=== PATIENT | female | born 1980 | race African-American/Black ===

== ENCOUNTER 2017-02-22 20:41 | Emergency (ER) | payer OTHER, MEDICAID ==
[~2017-02-22] VITALS: Ht 162.6 cm; Wt 124.7 kg
[~2017-02-22 20:41] MED LIST: AMLODIPINE BESY10 MG PO; AUGMENTIN 875875 MG PO; BENTYL 10 MG CA10 M1 PO; CELEXA 20 MG TA20 MG PO; CIPRO500 MG PO; CIPROFLOXACIN500 M1 PO; COLACE100 MG PO; COMPAZINE10 MG PO; FLAGYL500 M1 PO; FLAGYL500 MG PO; FLEXERIL PO; HYDROCHLOROTHIA25 M2 PO; HYDROCHLOROTHIA50 MG PO; HYDROCODONE-AP1 EAC6 PO; LEVAQUIN 500 M500 M2 PO; LISINOPRIL40 MG PO; MIRALAX17 GM PO; NORVASC10 MG PO; OXYCODONE HCL 55 MG PO; OXYCONTIN10 M1 PO; OXYCONTIN20 M1 PO; PERCOCET PO; PRINIVIL40 MG PO; PROTONIX40 M1 PO; ROXICODONE5 M2 PO; SENOKOT-S1 TA1 PO; TRANSDERM-SCO1 PATC1 TRANSDERM; UNICOMPLEX M TA1 TA1; VANCO1GM PO; ZOFRAN ODT4 MG DISSOLVE
[2017-02-22 21:31] LABS: AMP/METHAMP Negative (Negative); BARBITURATES Negative (Negative); BENZODIAZEPINES Negative (Negative); COCAINE Negative (Negative); METHADONE Negative (Negative); OPIATES Negative (Negative); PCP Negative (Negative); THC POSITIVE (Negative)
[2017-02-22] MEDS ORDERED: FLAGYL500 MG PO (22:12)
[2017-02-22] MEDS ORDERED: CIPROFLOXACIN500 M1 PO (22:12)
[2017-02-22] MEDS ORDERED: OXYCODONE HCL15 MG PO (22:15)
[2017-02-22 22:52] VITALS: BP 178/82
== END 2017-02-22 22:54 | disposition home or self-care (01) ==
LOC: M.ERS 20:41
PROVIDERS: Emergency Medicine
DX: N76.0 Acute vaginitis (principal); R19.7 Diarrhea, unspecified; I10 Essential (primary) hypertension; Z90.710 Acquired absence of both cervix and uterus; Z98.890 Other specified postprocedural states; G89.29 Other chronic pain; F10.99 Alcohol use, unspecified with unspecified alcohol-induced disorder; Z88.2 Allergy status to sulfonamides; Z88.8 Allergy status to other drugs, medicaments and biological substances

== ENCOUNTER 2017-06-30 16:40 | Inpatient (IN) | payer OTHER, MEDICAID ==
[~2017-06-30] VITALS: Ht 170.2 cm; Wt 127.0 kg
[~2017-06-30 16:40] MED LIST changes: +OXYCODONE HCL15 MG PO
[2017-06-30 16:49] VITALS: BP 171/92
[2017-06-30 16:55] LABS: URINE BILIRUBIN NEGATIVE (Negative); URINE BLOOD 1+ (Negative); URINE CLARITY CLEAR; URINE COLOR YELLOW; URINE GLUCOSE-RANDOM NEGATIVE (Negative); URINE KETONES NEGATIVE (Negative); URINE LEUKOCYTES-REFLEX TRACE (Negative); URINE NITRITE-REFLEX NEGATIVE (Negative); URINE PROTEIN NEGATIVE (Negative); URINE SPECIFIC GRAVITY 1.025 (1.005-1.030)
[2017-06-30 17:04] LABS: BACTERIA-REFLEX >30 Many /HPF (None Seen); CASTS None Seen /LPF (None Seen); CRYSTALS None Seen /LPF (None Seen); MUCUS 4-6 Moderate strn/LPF (None Seen); SQUAMOUS 4-10 Moderate /LPF (0-3); TRANSITIONAL EPITHEL CELL 0-3 Few /LPF (None Seen); URINE WBC-REFLEX 0-5 Rare /HPF (0-5)
[2017-06-30 17:13] LABS: ABSOLUTE BASOPHILS 0.1 thou/uL (0.0-0.2); ABSOLUTE EOSINOPHILS 0.1 thou/uL (0.0-0.7); ABSOLUTE LYMPHOCYTES 1.5 thou/uL (0.8-5.3); ABSOLUTE MONOCYTES 0.8 thou/uL (0.0-1.2); BASOPHILS 0.6 %; EOSINOPHILS 0.7 %; HEMATOCRIT 36.6 % (37.0-47.0); HEMOGLOBIN 12.3 gm/dL (12.0-15.0); LYMPHOCYTES 14.4 %; MCH 29.1 pg (26.0-34.0); MCHC 33.6 g/dL (28.0-37.0); MCV 86.4 fL (80.0-100.0); MONOCYTES 7.7 %; MPV 8.2 fl. (7.2-11.1); NUCLEATED RBCS 0 /100WBC; PLATELET COUNT* 226 thou/uL (150-400); POLYS 76.6 %; RBC 4.24 mil/uL (4.20-5.00); WBC 10.4 thou/uL (4.0-11.0)
[2017-06-30 17:21] LABS: CALCIUM 8.3 mg/dL (8.5-10.1); CREATININE 0.9 mg/dL (0.6-1.3); POTASSIUM 3.5 mmol/L (3.5-5.1)
[2017-06-30 17:26] LABS: ALBUMIN 3.3 g/dL (3.4-5.0); TOTAL BILIRUBIN 0.5 mg/dL (<0.1-1.0); TOTAL PROTEIN 7.8 g/dL (6.4-8.2)
--- NOTE | 2017-06-30 20:37 | NUR ---
KRISTEN VERBALIZED MILD RELIEF OF ANXIETY WITH WARM BLANKETS.
[2017-06-30 21:21] VITALS: BP 194/104
[2017-06-30 23:52] VITALS: BP 159/80
--- NOTE | 2017-07-01 06:52 | NUR ---
PATIENT ARRIVED TO UNIT AT 2104. ALERT AND ORIENTED X 4. RA. BLOOD PRESSURE ELEVATED. PHYSICIAN NOTFIED. ORDERS RECEIVED. BLOOD PRESSURE NOW STABLE. DILUADID AND ZOFRAN GIVEN EVERY FOUR HOURS. SLEPT COMFORTABLY BUT CONTINUES TO RATE HER PAIN LEVEL HIGH. UP INDEPENDENTLY. VOMITED SMALL AMOUNT OF EMESIS ONCE LAST NIGHT. EDUCATED ABOUT FALL PREVENTION. ORIENTED TO ROOM AND STAFF. SKIN INTACT. NPO. FLUIDS INFUSING PER ORDER. HOURLY ROUNDS. NURSING WILL CONTINUE TO MONITOR.
[2017-07-01 08:03] VITALS: BP 139/80
--- NOTE | 2017-07-01 10:45 | NUR ---
ASSUMED CARE OF PT THIS AM AROUND 0715- UPON ASSESSMENT PT NOTED TO BE RESTING IN BED, WATCHING TV- PT A&O X4- CONTINENT OF BOWEL AND BLADDER- UP AD-VENANCIO WITH STEADY GAIT NOTED- LCTA, RESP EVEN AND UN-LABORED- VSS, O2 SAT 98% ON RA- ABDOMEN OBESE/ROUND/NON-TENDER, BS X4 QUADS HYPOACTIVE- LAST BM REPORTED 06/29/17- IV TO RIGHT AC NOTED TO CLOT OFF AND D/C'D INDICATED- NEW IV 20GAUGE PLACED TO LEFT AC THIS SHIFT, IVF INFUSSING PRESCIBED- IV ABT GIVEN PRESCIBED WITH NO ADVERSE REACTIONS TO NOTE- SCHEDULED HYDRALAZINE D/C'D THIS AM- NEW ORDERS NOTED FOR LISINOPRIL 40MG DAILY AND NORVASC 10MG DAILY AND GIVEN THIS AM PRESCIBED- ICE CHIPS GIVEN INTERMITENTLY, OLAY PER SURGERY THIS AM- PAIN REPORTED TO LEFT/MID ABDOMEN 10/01- PRN HYDROMORPHONE GIVEN THIS AM AT 0906- CALL LIGHT AND PERSONAL BELONGINGS WITH IN REACH- HOURLY ROUNDS IN PLACE R/T SAFETY/NEEDS- ALL NEEDS MET AT THIS TIME-WCTM
[2017-07-01 16:00] VITALS: BP 143/68
--- NOTE | 2017-07-01 16:22 | NUR ---
PT CURRENLTY RESTING IN BED, EYES CLOSED- IV TO RIGHT AC NOTED TO CLOT OFF THIS SHIFT WITH NEW 20 GAUGE PLACED TO LEFT AC THIS SHIFT, IVF INFUSING PRESCIBED- PT CONTINUES TO BE NPO THIS SHIFT PRESCIBED WITH ICE SPARINGLY GIVEN- PRN HYDROMORPHONE GIVEN X3 THIS SHIFT PER PT REQUEST R/T ABDOMINAL PAIN, AND BENADRYL FOR ITCHING X1 AT 1223- PT REPORTS MEDICATIONS TO BE EFFECTIVE- PT REPORTS X1 THIS SHIFT TO HAVE FELT LIKE WHAT SEEMED TO BE SPASMS IN BLADDER THIS SHIFT- CALL LIGHT AND PERSOANL BELONGINGS WITH IN REACH- ALL NEEDS MET AT THIS TIME-WCTM
--- NOTE | 2017-07-01 16:43 | NUR ---
SW met with pt to complete initial assessment, introduce self, and SW role. Pt sleepy but was alert enough for conversation and oriented. Pt lives at home with her 2 sons, ages 22 and 14. Pt said her 22 year old is supportive and can assist with any needs. Pt does not anticipate any dc concerns or needs at this time. SW to continue to follow.
[2017-07-01 20:00] VITALS: BP 180/81
[2017-07-02 04:17] LABS: HEMATOCRIT 36.7 % (37.0-47.0); HEMOGLOBIN 12.2 gm/dL (12.0-15.0); MCH 28.8 pg (26.0-34.0); MCHC 33.3 g/dL (28.0-37.0); MCV 86.7 fL (80.0-100.0); MPV 8.9 fl. (7.2-11.1); RBC 4.23 mil/uL (4.20-5.00); WBC 10.5 thou/uL (4.0-11.0)
[2017-07-02 04:31] LABS: CALCIUM 8.1 mg/dL (8.5-10.1); CREATININE 0.7 mg/dL (0.6-1.3); MAGNESIUM 1.8 mg/dL (1.8-2.4); POTASSIUM 3.7 mmol/L (3.5-5.1)
--- NOTE | 2017-07-02 07:45 | NUR ---
Alert and oriented x 4. She was having IV problems right at the start of the shift. Sales And Service Specialist was able to get one in right upper arm. She has had abdominal pain rating 10/10 the decreased to 7/10, she's taking dilaudid 2MG IV almost every 2 hours. She is up independently to the bedside commode. She is voiding well. She has slept well.
[2017-07-02 16:00] VITALS: BP 185/94
[2017-07-02 21:00] VITALS: BP 147/83
[2017-07-03 01:08] VITALS: BP 147/83
[2017-07-03 03:55] LABS: HEMATOCRIT 35.4 % (37.0-47.0); HEMOGLOBIN 11.9 gm/dL (12.0-15.0); MCHC 33.6 g/dL (28.0-37.0); MCV 86.2 fL (80.0-100.0); MPV 8.4 fl. (7.2-11.1); RBC 4.11 mil/uL (4.20-5.00); RDW-CV 14.3 % (10.5-14.5); WBC 8.5 thou/uL (4.0-11.0)
[2017-07-03 04:19] LABS: ALBUMIN 2.9 g/dL (3.4-5.0); CREATININE 0.7 mg/dL (0.6-1.3); POTASSIUM 3.5 mmol/L (3.5-5.1); TOTAL BILIRUBIN 0.5 mg/dL (<0.1-1.0); TOTAL PROTEIN 6.8 g/dL (6.4-8.2)
[2017-07-03 08:30] VITALS: BP 185/101
--- NOTE | 2017-07-03 09:46 | NUR ---
PATIENT HAS BEEN RESTLESS OFF AND ON. PAIN MEDICATION GIVEN FREQUENTLY AND CHARTED FOR C/O ABDOMINAL PAIN. PATIENT HAS REMAINED NPO SINCE MIDNIGHT. BM DURING THIS SHIFT. NEW IV PLACE DURING SHIFT IN RIGHT HAND- NS @ 70ML/HR. IV ABT'S GIVEN WITHOUT ANY ADVERSE SIDE EFFECTS. PATIENT IS UP AD-VENANCIO AND STEADY ON HER FEET. PATIENT INSTRUCTED TO USE CALL LIGHT WHEN NEEDING ASSISTANCE. HOURLY ROUNDS MADE. WILL CONTINUE WITH PLAN OF CARE AND NURSING TO MONITOR.
[2017-07-03 16:00] VITALS: BP 163/99
[2017-07-03 20:00] VITALS: BP 184/100
[2017-07-04 04:11] LABS: HEMATOCRIT 37.9 % (37.0-47.0); HEMOGLOBIN 12.7 gm/dL (12.0-15.0); MCH 28.7 pg (26.0-34.0); MCHC 33.4 g/dL (28.0-37.0); MCV 85.8 fL (80.0-100.0); MPV 8.4 fl. (7.2-11.1); RBC 4.42 mil/uL (4.20-5.00); RDW-CV 14.1 % (10.5-14.5); WBC 6.8 thou/uL (4.0-11.0)
[2017-07-04 04:35] LABS: ALBUMIN 2.9 g/dL (3.4-5.0); CALCIUM 8.4 mg/dL (8.5-10.1); CREATININE 0.8 mg/dL (0.6-1.3); POTASSIUM 3.8 mmol/L (3.5-5.1); TOTAL BILIRUBIN 0.4 mg/dL (<0.1-1.0); TOTAL PROTEIN 6.9 g/dL (6.4-8.2)
--- NOTE | 2017-07-04 04:39 | NUR ---
PATIENT ALERT AND ORIENTED X4. MEDICATED FOR PAIN WITH OXY IR WITH PARTIAL RESULTS REPORTED. PATIENT NON COMPLIANT WITH CLEAR LIQUID DIET, DAY SHIFT NURSE STATES PATIENT ATE [employer] FOR D[employer]NER. STATES SHE WOULD LIKE TO GO HOME TODAY. WILL CONTINUE TO MONITOR.
[2017-07-04 08:30] VITALS: BP 146/85
[2017-07-04 15:33] VITALS: BP 146/85
[2017-07-04 15:46] VITALS: BP 146/85
[2017-07-04 15:47] VITALS: BP 146/85
[2017-07-04] MEDS ORDERED: CIPRO500 M1 PO (15:49)
[2017-07-04] MEDS ORDERED: CATAPRES-TTS 20.2 MG TRANSDERM (15:50)
[2017-07-04] MEDS ORDERED: COLACE100 MG PO (15:51)
[2017-07-04] MEDS ORDERED: LISINOPRIL40 MG PO (15:52)
[2017-07-04] MEDS ORDERED: FLAGYL500 M1 PO (15:53)
[2017-07-04] MEDS ORDERED: PROTONIX40 M1 PO (15:54)
[2017-07-04] MEDS ORDERED: OXYCONTIN20 M1 PO (15:55)
[2017-07-04] MEDS ORDERED: OXYCODONE HCL 55 MG PO (15:57)
[2017-07-04 16:41] VITALS: BP 146/85
--- NOTE | 2017-07-04 16:43 | NUR ---
PATIENT LEFT UNIT AT 1620 AMBULATORY WITH NURSING STAFF. IV DC'D. EDUCATED PATIENT AND CHILDREN ON NEW MED SCRIPTS AND DISCHARGE INSTRUCTIONS. PATIENT AND CHILDREN VERBALIZED UNDERSTANDING. ALL BELONGINGS LEFT WITH PATIENT.
[2017-07-05] MEDS ORDERED: IBUPROFEN 800800 M1 PO (16:33)
== END 2017-07-04 16:45 | disposition home or self-care (01) | DRG 392 ==
LOC: M.ERS 16:40 → M.ORTHSURG 19:51 → M.TBA-ER 19:51 → M.ORTHSURG 20:54
PROVIDERS: Family Medicine; Nurse Practitioner Family; Surgery; ADMIT Internal Medicine
DX: K57.20 Diverticulitis of large intestine with perforation and abscess without bleeding (principal); N39.0 Urinary tract infection, site not specified; Z68.41 Body mass index [BMI] 40.0-44.9, adult; E66.01 Morbid (severe) obesity due to excess calories; I10 Essential (primary) hypertension; G89.29 Other chronic pain; D72.829 Elevated white blood cell count, unspecified; F12.90 Cannabis use, unspecified, uncomplicated; N83.209 Unspecified ovarian cyst, unspecified side; N76.0 Acute vaginitis; Z88.2 Allergy status to sulfonamides; Z90.49 Acquired absence of other specified parts of digestive tract; Z90.710 Acquired absence of both cervix and uterus; Z88.8 Allergy status to other drugs, medicaments and biological substances

== ENCOUNTER 2017-07-05 14:44 | Emergency (ER) | payer OTHER, MEDICAID ==
[~2017-07-05] VITALS: Ht 162.6 cm; Wt 123.4 kg
[~2017-07-05 14:44] MED LIST changes: +CATAPRES-TTS 20.2 MG TRANSDERM; +CIPRO500 M1 PO
[2017-07-05] MEDS ORDERED: IBUPROFEN 800800 M1 PO (16:33)
[2017-07-05 16:53] VITALS: BP 97/63
== END 2017-07-05 16:54 | disposition home or self-care (01) ==
LOC: M.ERS 14:44
DX: I82.612 Acute embolism and thrombosis of superficial veins of left upper extremity (principal); I10 Essential (primary) hypertension; G89.29 Other chronic pain; Z88.8 Allergy status to other drugs, medicaments and biological substances; Z88.2 Allergy status to sulfonamides

== ENCOUNTER 2018-04-26 11:02 | Emergency (ER) | payer OTHER ==
[~2018-04-26] VITALS: Ht 162.6 cm; Wt 132.9 kg
[~2018-04-26 11:02] MED LIST changes: +IBUPROFEN 800800 M1 PO
[2018-04-26] MEDS ORDERED: ZESTORETIC 20-1 EACH PO (11:38)
[2018-04-26 11:43] VITALS: BP 198/115
--- NOTE | 2018-04-26 16:37 | EKG ---
[place] [address] ELECTROCARDIOGRAM REPORT Name: TRENT MEDINA Room: [facility]#: [id number] Admission: 04/26/18 Attend Phys: Discharge: 04/26/18 Date of : 78 Report #: [id number] THIS REPORT FOR: //name// [facility] ED Test Date: 2018-04-26 Test Time: 11:15:05 Pat Name: TRENT MEDINA Department: Room: Gender: F Commercial Lawn Specialist: Cirilo RICO : 1980 Requested By: Vicente Smith Order Number: [id number] MD: Antelmo Erazo Measurements Intervals [place] Rate: 68 P: 51 MS: 157 QRS: -13 QRSD: 92 T: 20 QT: 440 QTc: 469 Interpretive Statements Sinus rhythm Left ventricular hypertrophy Compared to ECG 12/28/2016 01:11:19 Left ventricular hypertrophy now present Electronically Signed On 04-26-2018 16:37:20 [employer] by Antelmo Erazo [email or web address] <ELECTRONICALLY SIGNED> By: Antelmo Erazo MD, [facility] 04/26/18 1637 [id number] Antelmo Erazo MD, FACC /EPI
== END 2018-04-26 11:44 | disposition home or self-care (01) ==
LOC: M.ERS 11:02
DX: I10 Essential (primary) hypertension (principal); Z90.49 Acquired absence of other specified parts of digestive tract; Z90.710 Acquired absence of both cervix and uterus; Z88.2 Allergy status to sulfonamides; Z88.8 Allergy status to other drugs, medicaments and biological substances

== ENCOUNTER 2018-05-11 13:39 | Emergency (ER) | payer OTHER ==
[~2018-05-11] VITALS: Ht 165.1 cm; Wt 120.2 kg
[~2018-05-11 13:39] MED LIST changes: +ZESTORETIC 20-1 EACH PO
[2018-05-11] MEDS ORDERED: LISINOPRIL10 MG PO (13:51)
[2018-05-11 15:08] LABS: CALCIUM 8.8 mg/dL (8.5-10.1); CREATININE 0.9 mg/dL (0.6-1.3); POTASSIUM 3.7 mmol/L (3.5-5.1)
[2018-05-11] MEDS ORDERED: LISINOPRIL20 MG PO (15:17)
[2018-05-11] MEDS ORDERED: HYDROCHLOROTH12.5 M1 PO (15:18)
[2018-05-11 15:51] VITALS: BP 180/113
== END 2018-05-11 15:51 | disposition home or self-care (01) ==
LOC: M.ERS 13:39
PROVIDERS: Nurse Practitioner Family
DX: M25.571 Pain in right ankle and joints of right foot (principal); I10 Essential (primary) hypertension; G89.29 Other chronic pain; Z88.2 Allergy status to sulfonamides; Z88.8 Allergy status to other drugs, medicaments and biological substances; Z90.49 Acquired absence of other specified parts of digestive tract; Z90.710 Acquired absence of both cervix and uterus

== ENCOUNTER 2018-06-01 03:32 | Emergency (ER) | payer OTHER ==
[~2018-06-01] VITALS: Ht 162.6 cm; Wt 130.3 kg
[~2018-06-01 03:32] MED LIST changes: +HYDROCHLOROTH12.5 M1 PO; +LISINOPRIL10 MG PO; +LISINOPRIL20 MG PO
[2018-06-01] MEDS ORDERED: NORCO 5-325 TA1 EACH PO (03:47)
[2018-06-01] MEDS ORDERED: PREDNISONE 20 M20 M1 PO (03:47)
[2018-06-01 04:06] VITALS: BP 229/116
== END 2018-06-01 04:07 | disposition home or self-care (01) ==
LOC: M.ERS 03:32
DX: M77.9 Enthesopathy, unspecified (principal); I10 Essential (primary) hypertension; G89.29 Other chronic pain; Z88.2 Allergy status to sulfonamides; Z88.8 Allergy status to other drugs, medicaments and biological substances; Z98.890 Other specified postprocedural states; Z90.49 Acquired absence of other specified parts of digestive tract; Z90.710 Acquired absence of both cervix and uterus

== ENCOUNTER 2020-03-09 11:05 | Emergency (ER) | payer OTHER ==
[~2020-03-09] VITALS: Ht 162.6 cm; Wt 117.9 kg
[~2020-03-09 11:05] MED LIST changes: +NORCO 5-325 TA1 EACH PO; +PREDNISONE 20 M20 M1 PO
[2020-03-09] MEDS ORDERED: NORVASC 2.5 MG2.5 M1 PO (11:17)
[2020-03-09] MEDS ORDERED: COZAAR 25 MG TA25 M1 PO (11:17)
[2020-03-09] MEDS ORDERED: CARVEDILOL12.5 MG PO ×2 (11:17→13:59)
[2020-03-09 11:30] LABS: ABSOLUTE EOSINOPHILS 0.1 thou/uL (0.0-0.7); ABSOLUTE LYMPHOCYTES 1.4 thou/uL (0.8-5.3); ABSOLUTE MONOCYTES 0.1 thou/uL (0.0-1.2); EOSINOPHILS 1.5 %; HEMATOCRIT 40.2 % (37.0-47.0); HEMOGLOBIN 13.7 gm/dL (12.0-15.0); LYMPHOCYTES 29.7 %; MCH 30.5 pg (26.0-34.0); MCHC 34.2 g/dL (28.0-37.0); MCV 89.2 fL (80.0-100.0); MPV 8.1 fl. (7.2-11.1); NUCLEATED RBCS 0 /100WBC; PLATELET COUNT* 188 thou/uL (150-400); POLYS 64.8 %; RBC 4.51 mil/uL (4.20-5.00); WBC 4.6 thou/uL (4.0-11.0)
[2020-03-09 11:40] LABS: CALCIUM 8.2 mg/dL (8.5-10.1); CREATININE 1.1 mg/dL (0.6-1.3); POTASSIUM 3.3 mmol/L (3.5-5.1)
[2020-03-09 11:42] LABS: APTT 24.2 Seconds (25.0-31.3); PROTIME 10.9 Seconds (9.20-11.50)
[2020-03-09 11:54] LABS: ALBUMIN 3.3 g/dL (3.4-5.0); MAGNESIUM 1.8 mg/dL (1.8-2.4); TOTAL BILIRUBIN 0.3 mg/dL (<0.1-1.0); TOTAL PROTEIN 6.9 g/dL (6.4-8.2)
[2020-03-09 14:02] VITALS: BP 201/100
--- NOTE | 2020-03-10 09:18 | EKG ---
[place] [address] ELECTROCARDIOGRAM REPORT Name: TRENT MEDINA Room: [facility]#: [id number] Admission: 03/09/20 Attend Phys: Discharge: 03/09/20 Date of : 78 Date of Service: 03/09/20 1110 Report #: [id number] THIS REPORT FOR: //name// [facility] ED Test Date: 2020-03-09 Test Time: 11:10:42 Pat Name: TRENT MEDINA Department: Room: Gender: F Chainer: CCD : 1980 Requested By: Vicente Smith Order Number: [id number] MD: Sulaiman Rod Measurements Intervals [place] Rate: 101 P: 66 MS: 157 QRS: -12 QRSD: 87 T: 69 QT: 370 QTc: 480 Interpretive Statements Sinus tachycardia Left ventricular hypertrophy, by voltage Baseline wander in lead(s) V2 Compared to ECG 04/26/2018 11:15:05 Sinus rhythm no longer present Electronically Signed On 03-10-2020 9:18:47 [employer] by Sulaiman Rod [email or web address] <ELECTRONICALLY SIGNED> By: Sulaiman Rod MD, FACC 03/10/20 0918 1110 1110 Sulaiman Rod MD, [facility] /EPI
== END 2020-03-09 14:02 | disposition home or self-care (01) ==
LOC: M.ERS 11:05
PROVIDERS: Family Medicine
DX: R07.9 Chest pain, unspecified (principal); I10 Essential (primary) hypertension; Z90.49 Acquired absence of other specified parts of digestive tract; Z90.710 Acquired absence of both cervix and uterus; Z79.899 Other long term (current) drug therapy; Z88.2 Allergy status to sulfonamides; Z88.8 Allergy status to other drugs, medicaments and biological substances